=== PATIENT | male | born 1985 | race Caucasian/White ===

== ENCOUNTER → 2020-05-01 | Outpatient (CLI) | payer BC | LOC: LAB 09:20 | PROVIDERS: ATTEND Pediatrics | DX: R50.9 Fever, unspecified (principal); R05 Cough; R06.02 Shortness of breath; Z20.828 Contact with and (suspected) exposure to other viral communicable diseases ==

== ENCOUNTER → 2021-04-09 | Outpatient (CLI) | payer BC | LOC: CAT 12:16 | PROVIDERS: ATTEND Pediatrics | DX: R00.0 Tachycardia, unspecified (principal); K76.0 Fatty (change of) liver, not elsewhere classified; R06.00 Dyspnea, unspecified; R07.89 Other chest pain; R42 Dizziness and giddiness ==